=== PATIENT | male | born 1950 | race Caucasian/White ===

== ENCOUNTER → 2016-05-22 | Outpatient (CLI) | payer OTHER, MEDICARE ==
[~2016-05-22] MED LIST: GADOBUTROL 10 ML VIAL IVP ONE
[2016-05-22 10:03] LABS: CREATININE 0.8 mg/dL (0.7-1.3); GLOMERULAR FILTRATION RATE > 60
--- NOTE | 2016-05-22 16:30 | MR ---
MRI of the Thoracic Spine (Without Contrast) 0941 hours Reason for examination: Persistent back pain. Previous lumbar spine surgery. Failed back syndrome. Technique: Sagittal T1, FSE T2 2nd echo with fat suppression and STIR imaging. Axial T1 and FSE T2 2n d echo imaging with fat suppression. Findings: Thoracic alignment is anatomic. There is a small right paracentral disk bulge at T1-T2, mo derate left paracentral disk bulge/protrusion at T2-T3, Mild right paracentral disk bulge at T4-T5, m oderate posterior central disk protrusion at T5-T6 causing mild compression upon the thoracic spinal cord, small posterior central disk protrusion without consequences at T9-T10, and moderate left parac entral disk protrusion at T11-T12. Right anterior disk bulges with hypertrophic osteophytes are prese nt mid to lower thoracic spine with largest at T9-T10. The thoracic neural canal is normal in size. T he thoracic cord looks normal. The conus medullaris occurs at T12-L1. Thoracic foramen are widely pat ent. Impression: 1. Multiple disk bulges and protrusions with findings most prominent at T5-T6 where there is a senior software analyst ior central disk protrusion causing mild to moderate compression upon the thoracic spinal cord withou t associated edema.
--- NOTE | 2016-05-22 16:39 | MR ---
MRI of the Lumbar Spine (Without and With Contrast) 1027 hours Clinical Indications: Failed back syndrome. Previous disk replacement and lumbar fusion Technique: Sagittal and axial T1 and T2 MR sequences of the lumbar spine without contrast. Axial i maging from T12 through S1. Post contrast sagittal and axial T1-weighted images with the uneventful i ntravenous administration of 8 mL of Gadavist also performed. Findings: Lumbar vertebral bodies are of normal height without compression fractures. Conus medulla ris appears normal and ends at L1 inferior endplate. Extensive metal artifact is present from L3 thr ough S1 from previous disk replacement material and anterior lumbar fusion plate. T12-L1: No disk herniation or stenosis. L1-L2: No disk herniation or stenosis. L2-L3: Mild desiccation and loss of disk height. There is mild diffuse disk bulge causing mild compre ssion upon the anterior dural sac. This along with mild ligamentum flavum hypertrophy and facet hyper trophy contributes to mild spinal stenosis and bilateral neural foraminal stenosis. L3-L4: Metallic disk replacement is present obscuring disk level on MRI.. L4-L5: The patient has had previous disk replacement material and bony fusion across this level. No r esidual disk bulge or protrusion is appreciated. There is underlying artifact, however. L5-S1: Metal disk replacement is present obscuring disk level on MRI. With contrast administration there is no abnormal enhancing lesion identified or abnormal enhancement along the disk margin. Impression: 1. Mild degenerative disk disease at L2-L3 with underlying mild spinal and bilateral neuroforaminal s tenoses.. 2. Metal artifact related to previous disk replacement material and lumbar spine fusion plate obscuri ng L3 through S1. Please see findings at specific disk levels.
== END ==
LOC: FIMAGING 09:02
PROVIDERS: ATTEND Neurological Surgery
DX: M96.1 Postlaminectomy syndrome, not elsewhere classified (principal); Z98.1 Arthrodesis status; M51.24 Other intervertebral disc displacement, thoracic region; M54.9 Dorsalgia, unspecified; M51.36 Other intervertebral disc degeneration, lumbar region
CPT/HCPCS: 72146; 72158; A9585

== ENCOUNTER 2016-06-22 07:21 | Day surgery (SDC) | payer OTHER, MEDICARE ==
[~2016-06-22 07:21] MED LIST changes: +BACITRACIN 50,000 UNITS/10 ML SYR IRR ONE; +BUPIVACAINE/EPI 0.25% 30 ML SDV ONE; -GADOBUTROL 10 ML VIAL IVP ONE; +THROMBIN (RECOMBINANT) 5,000 UNIT VIAL TP ONE
[2016-06-22] MEDS ORDERED: ceFAZolin 2 GM/DEXTROSE 100 ML IV ONE (08:00)
[2016-06-22] MEDS ORDERED: LIDOCAINE 1% 5 ML SDV ONE (08:08)
[2016-06-22] MEDS ORDERED: LR 1,000 ML IV ONE (08:29)
[2016-06-22] MEDS ORDERED: PROPOFOL/EMULSION 500 MG/50 ML BOTTLE IV ONE (08:37)
[2016-06-22] MEDS ORDERED: fentaNYL 100 MCG/2 ML INJ ONE ×2 (08:38→10:39)
[2016-06-22 08:40] LABS: INR 1.01 (0.83-1.16); PROTIME(PATIENT) 13.2 SEC (12.0-15.0)
[2016-06-22] MEDS ORDERED: MIDAZOLAM 2 MG/2 ML VIAL ONE (08:41)
[2016-06-22] MEDS ORDERED: PROPOFOL 200 MG/20 ML VIAL ONE (08:42)
[2016-06-22] MEDS ORDERED: SURGIFLO MATRIX KIT WITH THROMBIN TP ONE (09:24)
[2016-06-22] MEDS ORDERED: ROCURONIUM 50 MG/5 ML VIAL ONE (10:19)
[2016-06-22] MEDS ORDERED: ONDANSETRON 4 MG/2 ML VIAL ONE (10:19)
--- NOTE | 2016-06-22 11:24 | GOP ---
[f rep st] OPERATIVE REPORT DATE OF OPERATION: SURGEON: Meghna Aguilar DO THERAPY ADMINISTRATIVE ASSISTANT: NANCY Arndt PREOPERATIVE DIAGNOSIS: 1. Chronic pain syndrome. 2. Failed back syndrome. POSTOPERATIVE DIAGNOSIS: 1. Chronic pain syndrome. 2. Failed back syndrome. PROCEDURE PERFORMED: 1. T10-11 laminectomy with placement of Medtronic SureScan 5-6-5 paddle lead at T8, T9 interspace, T 9 and T10 interspace for trial. 2. Impedances. FINDINGS: SPECIMENS: None. ESTIMATED BLOOD LOSS: 30 mL. INDICATIONS: This is a 66-year-old male who has failed back syndrome, chronic pain syndrome and has failed all conservative management, elected to move forward with placement of spinal cord stimulator, paddle lead for trial. He was identified, consent obtained. DESCRIPTION OF PROCEDURE: The patient was brought to the operating room, anesthetized under local wi th MAC, prepped and draped in the usual sterile fashion. We localized the T9, 10, 11 inner space for a laminectomy. He was anesthetized with 0.5% Marcaine with epinephrine. Incision was made with a 1 0 blade. Hemostasis was obtained with Bovie and bipolar cautery, dissecting down to the lamina of T1 0 and T11, placed a Shadow-Line retractor, placed a 4 [place], took an x-ray, verified we were in th e appropriate position. We removed the interspinous ligament and spinous process using the Leksell a nd then used a high-speed drill to create a laminotomy, opened the ligament with a ball-tipped probe and then used 2 and 3 Kerrisons to create a laminotomy. We easily slid the lead into the space. The patient was awoken, had intraoperative testing. All testing was good. He was anchored in with ____ anchors and 0 Nurolon at 2 positions. We copiously irrigated with over a liter of bacitracin- infused saline. Meticulous hemostasis was obtained with bipolar cautery. Floseal was placed as well . The fascia was closed with 2-0 Vicryl pop-offs. The subcutaneous pocket was created with Metzenunique um scissors. Hemostasis was obtained with bipolar cautery. We then placed the extensions over the b oot over the lead. The extension over the lead was locked into position, protecting the contact with , brought the boot over the lead extension complex, tied in position with 2-0 silk ties in 2 positions. Checked impedance and all impedances were good. We tunneled out to the right as he wo uld like a permanent left-sided generator placement and then coiled the wires in the pocket. We took a final x-ray. There was no migration. Copiously irrigated with over a liter of bacitracin-infused saline. We closed the subcutaneous layer with 2-0 Vicryl pop-offs and the skin was closed with 3-0 running nylon. A drain stitch was placed around the external wires. The wound was dressed with Xero form, gauze and Tegaderm. The patient tolerated the procedure well. There were no complications. FLUIDS: 700 mL Crystalloid. URINE OUTPUT: None. DRAINS: None. COMPLICATIONS: None. /[id number]/MODL
--- NOTE | 2016-06-22 13:57 | DX ---
Intraoperative Fluoroscopy History: Spinal cord implant. Stimulator placement Fluoroscopy time = 36.6 seconds Fluoroscopy dose = 14.69 mGy Findings : A single spot film demonstrates placement of the leads dorsally between the lower portion of T9 and the upper portion of T11 Impression: Implant in the lower thoracic spine.
== END 2016-06-22 12:10 | disposition home or self-care (01) ==
LOC: FSGY 07:21
PROVIDERS: ATTEND Neurological Surgery
PROC: 00HV0MZ Insertion of Neurostimulator Lead into Spinal Cord, Open Approach (ICD-10-PCS; principal; 2016-06-22 08:30)
DX: G89.4 Chronic pain syndrome (principal); M96.1 Postlaminectomy syndrome, not elsewhere classified; M54.9 Dorsalgia, unspecified; F32.9 Major depressive disorder, single episode, unspecified; M51.24 Other intervertebral disc displacement, thoracic region; M51.36 Other intervertebral disc degeneration, lumbar region; I10 Essential (primary) hypertension; Z79.01 Long term (current) use of anticoagulants; Z86.711 Personal history of pulmonary embolism; Z96.643 Presence of artificial hip joint, bilateral
CPT/HCPCS: C1778; C1883; J0690; J2250; J2405; J2704; J3010

== ENCOUNTER 2016-06-29 06:55 | Day surgery (SDC) | payer OTHER, MEDICARE ==
[2016-06-29] MEDS ORDERED: LIDOCAINE 1% 5 ML SDV ONE (07:24)
[2016-06-29] MEDS ORDERED: ceFAZolin 2 GM/DEXTROSE 100 ML IV ONE (07:30)
[2016-06-29] MEDS ORDERED: BUPIVACAINE/EPI 0.25% 30 ML SDV ONE (07:43)
[2016-06-29] MEDS ORDERED: SKIN ADHESIVE (DERMABOND) 1 EACH TP ONE ×3 (07:43→07:45)
[2016-06-29] MEDS ORDERED: BACITRACIN 50,000 UNITS/10 ML SYR IRR ONE (07:44)
[2016-06-29 08:01] LABS: INR 0.96 (0.83-1.16); PROTIME(PATIENT) 12.7 SEC (12.0-15.0)
[2016-06-29] MEDS ORDERED: LIDOCAINE 1% 5 ML SDV ID PRN (08:06)
[2016-06-29] MEDS ORDERED: LR 1,000 ML IV ONE (08:06)
[2016-06-29] MEDS ORDERED: MIDAZOLAM 2 MG/2 ML VIAL ONE (08:35)
[2016-06-29] MEDS ORDERED: fentaNYL 100 MCG/2 ML INJ ONE (08:47)
[2016-06-29] MEDS ORDERED: PROPOFOL 200 MG/20 ML VIAL ONE (08:48)
--- NOTE | 2016-06-29 09:58 | GOP ---
[f rep st] OPERATIVE REPORT DATE OF OPERATION: SURGEON: Meghna Aguilar DO SPINNERET CLEANER: Rivka Antunez, NANCY. PREOPERATIVE DIAGNOSIS: 1. Chronic pain syndrome. 2. Failed back syndrome. 3. Successful spinal cord stimulator trial. POSTOPERATIVE DIAGNOSIS: 1. Chronic pain syndrome. 2. Failed back syndrome. 3. Successful spinal cord stimulator trial. PROCEDURE PERFORMED: 1. Placement of spinal cord stimulator generator Medtronic restore sensor generator to left hip con nection to indwelling paddle lead. 2. Impedance. FINDINGS: SPECIMENS: None. ESTIMATED BLOOD LOSS: 10 mL. INDICATIONS: This is a 66-year-old male who had a thoracic laminectomy, placement of spinal cord st imulator paddle lead for trial approximately 1 week ago. He had almost 100% relief of his pain and improvement of his activities of daily living. He elected to move forward with generator. DESCRIPTION OF PROCEDURE: He was identified, consented. Sites were marked, brought to the operatin g room, anesthetized under general endotracheal tube anesthesia, rolled onto the Kiko frame. All pressure points were appropriately padded. Sutures were cut and he was prepped and draped in usual sterile fashion. The incision for the pocket was marked. He had previously marked the level of his belt line. It was placed just below that on the left side. Incision at the hip was anesthetized w ith 0.25% Marcaine with epinephrine. Incision was made with a 10 blade at the thoracic spine and th e lead wires were brought out and the extension was cut at the distal end, pulling out from undernea th the drapes. Then stay sutures were cut with a 15 blade. The boot was retracted. Using the torq ue wrench protecting the context, we removed the extension and discarded the extension and boot. Ma de an incision at the hip with a 10 blade and using Metzenbaum scissors, created a subcutaneous pock et for the generator. We then tunneled from the hip to the thoracic spine, brought the leads down a nd out through leaving a strain relief loop at the thoracic spine and gently drying the lead placing it into the generator, locking it in place with the torque wrench, coiling wires posterior to the g enerator placing it in the pocket, checking impedances. All impedances were good. Generator was keyes tured to the fascia with 2-0 silk stitch at 2 positions. We copiously irrigated each incision with over a L of bacitracin infused saline. The thoracic incision was closed with 2-0 Vicryl pop-offs keyes bcutaneous stitch in a 3-0 running nylon. At the hip, the fascia was closed with 2-0 Vicryl pop-off s subcutaneous layer through Vicryl pop-offs. The skin was closed with a 4-0 running Monocryl and D ermabond. The thoracic incision was dressed with and Xeroform gauze and a Tegaderm. The stay stitc h was placed at the extension for removal site. Patient tolerated procedure well. No complications . FLUID: 700 mL crystalloid. URINE OUTPUT: None. DRAINS: None. COMPLICATIONS: None. /[id number]/MODL
[2016-06-29] MEDS ORDERED: oxyCODONE IR 5 MG TAB ONE (10:36)
== END 2016-06-29 11:50 | disposition home or self-care (01) ==
LOC: FSGY 06:55
PROVIDERS: ATTEND Neurological Surgery
PROC: 0JH70MZ Insertion of Stimulator Generator into Back Subcutaneous Tissue and Fascia, Open Approach (ICD-10-PCS; principal; 2016-06-29 08:30)
DX: G89.4 Chronic pain syndrome (principal); M96.1 Postlaminectomy syndrome, not elsewhere classified; M54.9 Dorsalgia, unspecified; F32.9 Major depressive disorder, single episode, unspecified; M48.05 Spinal stenosis, thoracolumbar region; Z96.643 Presence of artificial hip joint, bilateral; D68.59 Other primary thrombophilia; E78.00 Pure hypercholesterolemia, unspecified; I20.1 Angina pectoris with documented spasm; Z86.718 Personal history of other venous thrombosis and embolism; Z79.01 Long term (current) use of anticoagulants; Z79.899 Other long term (current) drug therapy; Z98.1 Arthrodesis status
CPT/HCPCS: C1787; C1820; J0690; J2250; J2704; J3010

== ENCOUNTER → 2016-08-19 | Outpatient (CLI) | payer OTHER, MEDICARE | LOC: FIMAGING 13:51 | PROVIDERS: ATTEND Anesthesiology Pain Medicine | DX: Z09 Encounter for follow-up examination after completed treatment for conditions other than malignant neoplasm (principal); G89.4 Chronic pain syndrome; M96.1 Postlaminectomy syndrome, not elsewhere classified; M54.5 Low back pain; M51.37 Other intervertebral disc degeneration, lumbosacral region; Z96.89 Presence of other specified functional implants ==

== ENCOUNTER 2017-01-16 15:59 | Observation (INO) | payer OTHER, MEDICARE ==
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
[2017-01-16] MEDS ORDERED: NS 1,000 ML IV ONE (16:25)
[2017-01-16] MEDS ORDERED: IOPAMIDOL (ISOVUE-300) 100 ML BTL ONE (16:29)
[2017-01-16 16:30] LABS: % IMMATURE GRANULYOCYTES 0.9 % (0.0-1.1); ABSOLUTE IMMATURE GRANULOCYTES 0.09 10^3/uL (0.00-0.10); ADD DIFF? NO; ADD MORPH? NO; ADD SCAN? NO; ATYPICAL LYMPHOCYTE FLAG 0 (0-99); FRAGMENT RBC FLAG 0 (0-99); HEMOGLOBIN 16.2 g/dL (13.7-17.5); LEFT SHIFT FLG 10 (0-99); LIPEMIA HEMOLYSIS FLAG 90 (0-99); MEAN CELL HEMOGLOBIN 31.7 pg (27.9-34.1); MEAN CELL HEMOGLOBIN CONCENTR. 33.8 g/dL (32.4-36.7); MEAN CELL VOLUME 93.9 fL (81.5-99.8); MEAN PLATELET VOLUME 9.4 fL (8.7-11.7); PLATELET CLUMPS FLAG 10 (0-99); PLATELET COUNT 251 10^3/uL (150-400); RED BLOOD CELL COUNT 5.11 10^6/uL (4.40-6.38); RED CELL DISTRIBUTION WIDTH 13.7 % (11.5-15.2)
[2017-01-16] MEDS ORDERED: HYDROmorphONE/DILAUDID 1 MG/ML SYR IVP ONE ×3 (16:30→22:23)
[2017-01-16 16:36] LABS: ANION GAP 15 mEq/L (8-16); CALCIUM 10.3 mg/dL (8.5-10.4); CARBON DIOXIDE 24 mEq/l (22-31); CHLORIDE 104 mEq/L (97-110); CREATININE 0.8 mg/dL (0.7-1.3); GLOMERULAR FILTRATION RATE > 60; GLUCOSE 112 mg/dL (70-100); POTASSIUM 4.1 mEq/L (3.5-5.2); SODIUM 143 mEq/L (134-144)
[2017-01-16 16:49] LABS: INR 2.24 (0.83-1.16)
[2017-01-16] MEDS ORDERED: LORazepam 2 MG/ML INJ IVP ONE ×2 (16:54→18:26)
[2017-01-16] MEDS ORDERED: TDAP ADULT 0.5 ML INJ (BOOSTRIX) IM ONE (17:21)
[2017-01-16] MEDS ORDERED: ONDANSETRON 4 MG/2 ML VIAL IVP PRN (18:50)
[2017-01-16] MEDS ORDERED: LR 1,000 ML IV SCH (19:00)
[2017-01-16 20:14] LABS: COLOR YELLOW; LEUKOCYTE ESTERASE,URINE NEGATIVE (NEGATIVE); NITRITE,URINE NEGATIVE (NEGATIVE)
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
[2017-01-16] MEDS: GABAPENTIN 300 MG CAP PO SCH (22:04)
[2017-01-16] MEDS: traMADol 50 MG TAB PO SCH (22:04)
[2017-01-16] MEDS: ACETAMINOPHEN 500 MG TAB PO SCH (22:05)
[2017-01-16] MEDS: BACITRACIN ZINC 14.2 GM OINTTUBE TP SCH (22:06)
[2017-01-16] MEDS: METOPROLOL TARTRATE 25 MG TAB PO SCH (22:07)
[2017-01-16] MEDS ORDERED: traZODone 50 MG TAB PO ONE (22:19)
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
[2017-01-17 05:21] LABS: % IMMATURE GRANULYOCYTES 0.5 % (0.0-1.1); ABSOLUTE IMMATURE GRANULOCYTES 0.04 10^3/uL (0.00-0.10); ADD DIFF? NO; ADD MORPH? NO; ADD SCAN? NO; ATYPICAL LYMPHOCYTE FLAG 0 (0-99); FRAGMENT RBC FLAG 0 (0-99); HEMATOCRIT 36.6 % (40.0-51.0); HEMOGLOBIN 12.4 g/dL (13.7-17.5); LEFT SHIFT FLG 10 (0-99); LIPEMIA HEMOLYSIS FLAG 90 (0-99); MEAN CELL HEMOGLOBIN 31.9 pg (27.9-34.1); MEAN CELL HEMOGLOBIN CONCENTR. 33.9 g/dL (32.4-36.7); MEAN CELL VOLUME 94.1 fL (81.5-99.8); MEAN PLATELET VOLUME 9.3 fL (8.7-11.7); PLATELET CLUMPS FLAG 0 (0-99); PLATELET COUNT 194 10^3/uL (150-400); RED BLOOD CELL COUNT 3.89 10^6/uL (4.40-6.38)
[2017-01-17 05:35] LABS: INR 2.2 (0.83-1.16); PROTIME(PATIENT) 24.6 SEC (12.0-15.0)
[2017-01-17 05:45] LABS: ANION GAP 9 mEq/L (8-16); CALCIUM 8.8 mg/dL (8.5-10.4); CARBON DIOXIDE 24 mEq/l (22-31); CHLORIDE 103 mEq/L (97-110); CREATININE 0.7 mg/dL (0.7-1.3); GLOMERULAR FILTRATION RATE > 60; GLUCOSE 146 mg/dL (70-100); POTASSIUM 4.4 mEq/L (3.5-5.2); SODIUM 136 mEq/L (134-144)
[2017-01-17] MEDS: ACETAMINOPHEN 500 MG TAB PO SCH ×2 (05:47→14:00)
[2017-01-17] MEDS: METOPROLOL TARTRATE 25 MG TAB PO SCH (08:53)
[2017-01-17] MEDS: GABAPENTIN 300 MG CAP PO SCH ×2 (08:53→15:32)
[2017-01-17] MEDS: traMADol 50 MG TAB PO SCH ×2 (08:54→15:32)
[2017-01-17] MEDS ORDERED: DIVALPROEX ER 250 MG TAB PO SCH (09:00)
[2017-01-17] MEDS ORDERED: CITALOPRAM 20 MG TAB PO SCH (09:00)
[2017-01-17 11:44] VITALS: RESP 14
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
[2017-01-17] MEDS: BACITRACIN ZINC 14.2 GM OINTTUBE TP SCH (14:00)
[2017-01-17] MEDS ORDERED: HYDROCODONE/APAP 5/325 TAB PO PRN (14:33)
[2017-01-17 15:46] VITALS: BP 134/72; PULSE 70; TEMP 97.9; O2SAT 93
[2017-01-17] MEDS ORDERED: WARFARIN SODIUM 5 MG TAB PO SCH (16:00)
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
[2017-01-17] MEDS ORDERED: traZODone 50 MG TAB PO SCH (21:00)
--- NOTE | 2017-01-18 09:21 | ASDISCHSUM ---
Discharge Information Plan Status:Home with No Needs Medically Cleared to Leave: Discharge Date: CM D/C Disposition:Home, Routine, Self-Care ADT D/C Disposition: Projected Discharge Date: Transportation at D/C: Discharge Delay Reason: Follow-Up Date: Discharge Slot: Final Diagnosis: Placement Information Patient Contact Information Contact Name:REGINALDO Relationship: Address:[address] Work Phone: City:[place] Phone: State/Zip Code:[place] [address] Email: Financial Information Financial Class: Primary Plan Desc:MEDICARE OUTPATIENT Primary Plan Number:[id number] Secondary Plan Desc:[employer]/MDR SUPPLEMENT Secondary Plan Number:[id number] Assessment Information Intervention Information Intervention Type:*NOVAK-Signed Date of Service:01/17/2017 01:06 PM Patient Type:Observation Staff Member:Sindhu Bnod Hours: Discipline: Severity: Comment:
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
== END 2017-01-17 18:20 | disposition home or self-care (01) ==
LOC: F3N 20:07
PROVIDERS: ADMIT Surgery; ATTEND Surgery
DX: S12.691A Other nondisplaced fracture of seventh cervical vertebra, initial encounter for closed fracture (principal); S40.212A Abrasion of left shoulder, initial encounter; S60.812A Abrasion of left wrist, initial encounter; V29.9XXA Motorcycle rider (driver) (passenger) injured in unspecified traffic accident, initial encounter; M50.322 Other cervical disc degeneration at C5-C6 level; M46.92 Unspecified inflammatory spondylopathy, cervical region; E78.5 Hyperlipidemia, unspecified; G89.29 Other chronic pain; I26.99 Other pulmonary embolism without acute cor pulmonale; Z79.01 Long term (current) use of anticoagulants
CPT/HCPCS: 70450; 71260; 72040; 72125; 72129; 72132; 72141; 73562; 74177; 90715; 92523; 97161; 97165; G0378; G8978; G8979; G8980; G8987; G8988; G8989; G9165; G9166; G9167; J1170; J2060; Q9967; 82947-QW; 96374

== ENCOUNTER → 2017-01-31 | Outpatient (CLI) | payer OTHER, MEDICARE | LOC: FIMAGING 12:13 | PROVIDERS: ATTEND Internal Medicine | DX: S22.31XD Fracture of one rib, right side, subsequent encounter for fracture with routine healing (principal) ==

== ENCOUNTER → 2017-02-13 | Outpatient (CLI) | payer OTHER, MEDICARE | LOC: BMCIMAGING 10:33 | PROVIDERS: ATTEND Neurological Surgery | DX: M50.322 Other cervical disc degeneration at C5-C6 level (principal); M50.323 Other cervical disc degeneration at C6-C7 level ==

== ENCOUNTER → 2017-03-09 | Outpatient (CLI) | payer OTHER, MEDICARE | LOC: FIMAGING 16:00 | PROVIDERS: ATTEND Nurse Practitioner | DX: M54.16 Radiculopathy, lumbar region (principal); Z98.1 Arthrodesis status ==

== ENCOUNTER → 2017-03-16 | Outpatient (CLI) | payer OTHER, MEDICARE | LOC: BMCIMAGING 10:32 | PROVIDERS: ATTEND Nurse Practitioner | DX: M50.30 Other cervical disc degeneration, unspecified cervical region (principal); M43.12 Spondylolisthesis, cervical region ==

== ENCOUNTER → 2017-05-03 | Outpatient (CLI) | payer OTHER, MEDICARE ==
[~2017-05-03] MED LIST changes: -BACITRACIN 50,000 UNITS/10 ML SYR IRR ONE; -BUPIVACAINE/EPI 0.25% 30 ML SDV ONE; +IOPAMIDOL (ISOVUE-M 200) 20 ML VIAL ONE; +LIDOCAINE 1% 300 MG/30 ML SDV ONE; -THROMBIN (RECOMBINANT) 5,000 UNIT VIAL TP ONE
--- NOTE | 2017-05-03 12:33 | PDRADPN ---
Radiology Procedure Note Date of Procedure: 05/09/17 Radiologist: Rom Benoit Pre-op Diagnosis: LOW BACK PAIN Post-op Diagnosis: LOW BACK PAIN Indication: LOW BACK PAIN Procedure: LUMBAR MYELOGRAM Finding(s): MILD STENOSIS. PLEASE SEE RADIOLOGY REPORT. Depth: Superfical (Skin SQ) (LOCAL LIDOCAIN IN BACK) EBL: Minimal (NONE) Drains: Constavac Specimen(s): NONE
== END ==
LOC: FIMAGING 04-12 09:39
PROVIDERS: ATTEND Nurse Practitioner
PROC: 3E0R3KZ Introduction of Other Diagnostic Substance into Spinal Canal, Percutaneous Approach (ICD-10-PCS; principal; 2017-05-03)
DX: M54.5 Low back pain (principal); Z98.1 Arthrodesis status; S12.600A Unspecified displaced fracture of seventh cervical vertebra, initial encounter for closed fracture
CPT/HCPCS: 62284; 72132; 72265; Q9966

== ENCOUNTER → 2017-09-29 | Outpatient (CLI) | payer OTHER, MEDICARE | LOC: FIMAGING 08:27 | PROVIDERS: ATTEND Internal Medicine | DX: R27.0 Ataxia, unspecified (principal) ==

== ENCOUNTER → 2017-11-10 | Outpatient (CLI) | payer OTHER, MEDICARE | LOC: BMCIMAGING 09:35 | PROVIDERS: ATTEND Family Medicine | DX: S49.92XA Unspecified injury of left shoulder and upper arm, initial encounter (principal); Y93.55 Activity, bike riding; V18.9XXA Unspecified pedal cyclist injured in noncollision transport accident in traffic accident, initial encounter ==

== ENCOUNTER → 2017-12-07 | Outpatient (CLI) | payer OTHER, MEDICARE | LOC: BMCIMAGING 13:42 | PROVIDERS: ATTEND Internal Medicine | DX: E04.1 Nontoxic single thyroid nodule (principal) | CPT/HCPCS: 76536-PO ==

== ENCOUNTER 2017-12-14 06:13 | Inpatient (IN) | payer OTHER, MEDICARE ==
[2017-12-14] MEDS ORDERED: NS 1,000 ML IV ONE (06:30)
[2017-12-14] MEDS ORDERED: ONDANSETRON 4 MG/2 ML VIAL ONE ×2 (06:30→08:30)
[2017-12-14] MEDS ORDERED: PROMETHAZINE HCL 25 MG/ML INJ IVP ONE (06:31)
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
[2017-12-14 06:36] LABS: PLATELET COUNT 211 10^3/uL (150-400)
[2017-12-14] MEDS ORDERED: fentaNYL 100 MCG/2 ML INJ ONE (06:36)
[2017-12-14] MEDS ORDERED: fentaNYL 100 MCG/2 ML INJ IVP ONE (06:37)
[2017-12-14 06:44] LABS: INR 3.72 (0.83-1.16); PROTIME(PATIENT) 36.5 SEC (12.0-15.0)
[2017-12-14] MEDS ORDERED: HUMAN PROTHROMBIN COMPLX(PCC) 2,500 UNIT/100 ML VIAL IV ONE (06:47)
[2017-12-14] MEDS ORDERED: PHYTONADIONE 10 MG in NS 50 ML IV ONE (06:47)
[2017-12-14] MEDS ORDERED: levETIRAcetam 750 MG in NS 100 ML IV ONE (07:49)
[2017-12-14] MEDS ORDERED: hydrALAZINE 20 MG/ML VIAL IVP PRN (07:53)
[2017-12-14] MEDS ORDERED: NS 1,000 ML IV SCH (08:00)
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
[2017-12-14 08:35] LABS: INR 1.09 (0.83-1.16); PROTIME(PATIENT) 14.3 SEC (12.0-15.0)
[2017-12-14] MEDS: ONDANSETRON 4 MG/2 ML VIAL IVP PRN ×2 (08:40→14:31)
[2017-12-14] MEDS ORDERED: ACETAMINOPHEN 650 MG SUPP PR PRN (08:48)
[2017-12-14] MEDS ORDERED: oxyCODONE IR 5 MG TAB PO PRN (08:48)
[2017-12-14] MEDS: HYDROmorphONE/DILAUDID 1 MG/ML INJ IVP PRN ×3 (09:06→17:31)
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
[2017-12-14] MEDS ORDERED: CYCLOBENZAPRINE 10 MG TAB PO PRN (14:20)
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
[2017-12-14] MEDS: levETIRAcetam 750 MG in NS 100 ML IV SCH ×2 (18:55→22:09)
[2017-12-14] MEDS ORDERED: GABAPENTIN 300 MG CAP PO SCH (21:00)
[2017-12-14] MEDS: GABAPENTIN 100 MG CAP PO SCH (22:07)
[2017-12-14] MEDS: MULTIVITAMINS W-MINERALS 1 EACH TAB PO SCH (22:07)
[2017-12-14] MEDS: METOPROLOL TARTRATE 25 MG TAB PO SCH (22:07)
[2017-12-14] MEDS: DIVALPROEX ER 250 MG TAB PO SCH (22:08)
[2017-12-14] MEDS: DULoxetine 30 MG CAP PO SCH (22:08)
[2017-12-14] MEDS: traZODone 100 MG TAB PO SCH (22:08)
[2017-12-15] MEDS: levETIRAcetam 500 MG TAB PO SCH ×2 (08:46→21:08)
[2017-12-15] MEDS: METHADONE HCL 10 MG TAB PO SCH ×2 (08:46→13:51)
[2017-12-15] MEDS: METOPROLOL TARTRATE 25 MG TAB PO SCH ×2 (08:47→20:12)
[2017-12-15] MEDS: PRAVASTATIN SODIUM 20 MG TAB PO SCH (08:47)
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
[2017-12-15] MEDS: ACETAMINOPHEN 500 MG TAB PO PRN ×2 (12:44→20:11)
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
[2017-12-15] MEDS: traZODone 100 MG TAB PO SCH (21:08)
[2017-12-15] MEDS: GABAPENTIN 100 MG CAP PO SCH (21:08)
[2017-12-15] MEDS: MULTIVITAMINS W-MINERALS 1 EACH TAB PO SCH (21:08)
[2017-12-15] MEDS: DULoxetine 30 MG CAP PO SCH (21:08)
[2017-12-15] MEDS: DIVALPROEX ER 250 MG TAB PO SCH (21:09)
[2017-12-16] MEDS: ACETAMINOPHEN 500 MG TAB PO PRN (04:59)
[2017-12-16] MEDS: levETIRAcetam 500 MG TAB PO SCH (08:45)
[2017-12-16] MEDS: METHADONE HCL 10 MG TAB PO SCH ×2 (08:47→13:35)
[2017-12-16] MEDS: METOPROLOL TARTRATE 25 MG TAB PO SCH (08:48)
[2017-12-16] MEDS: PRAVASTATIN SODIUM 20 MG TAB PO SCH (08:49)
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
[2017-12-16 11:50] VITALS: BP 136/82
--- NOTE | 2017-12-16 14:13 | ASMTDCNOTE ---
Case Management Discharge Discharge Order Complete? Answers: Yes Followup Appointment 12/29/2017 12:00 AM Patient to Obtain Answers: Independently Medications Transportation Arranged Answers: Family/Friends Discharge Comments Notes: Patient discharged home with . 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 He will follow up with Dr Singh in two week.s Date Signed: 12/16/2017 02:12 PM Electronically Signed By:Syeda Kauffman RN
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
== END 2017-12-16 15:53 | disposition home or self-care (01) | DRG 87 ==
LOC: F2N 08:20 → F3N 12-16 10:17
PROVIDERS: ADMIT Neurological Surgery; ATTEND Neurological Surgery
PROC: 30283B1 Transfusion of Nonautologous 4-Factor Prothrombin Complex Concentrate into Vein, Percutaneous Approach (ICD-10-PCS; principal; 2017-12-14)
DX: S06.5X0A Traumatic subdural hemorrhage without loss of consciousness, initial encounter (principal); V18.0XXA Pedal cycle driver injured in noncollision transport accident in nontraffic accident, initial encounter; R40.2411 Glasgow coma scale score 13-15, in the field [EMT or ambulance]; E86.9 Volume depletion, unspecified; Z79.01 Long term (current) use of anticoagulants; Z86.711 Personal history of pulmonary embolism
CPT/HCPCS: 82435-PO; 82565-PO; 82947-PO; 84132-PO; 84295-PO; 84484-PO; 84520-PO; 85014-PO; 92507-GN; 92523-GN; 96374; 97116-GP; 97162-GP; 97166-GO; 97530-GO; 97535-GO; C9132; G8978-GP-CJ; G8979-GP-CI; G8980-GP-CI; G8987-GO-CI; G8988-GO-CH; G8988-GO-CI; G8989-GO-CI; G9165-GN-CI; G9166-GN-CH; J0360; J1170; J1953; J2405; J2550; J3010; J3430

== ENCOUNTER → 2018-02-02 | Outpatient (CLI) | payer OTHER, MEDICARE | LOC: BMCIMAGING 15:03 | PROVIDERS: ATTEND Orthopaedic Surgery Hand Surgery | DX: M19.012 Primary osteoarthritis, left shoulder (principal) ==

== ENCOUNTER → 2018-02-08 | Outpatient (CLI) | payer OTHER, MEDICARE | LOC: FIMAGING 09:08 | PROVIDERS: ATTEND Physician Assistant Surgical | DX: Z09 Encounter for follow-up examination after completed treatment for conditions other than malignant neoplasm (principal); S06.5X1D Traumatic subdural hemorrhage with loss of consciousness of 30 minutes or less, subsequent encounter ==

== ENCOUNTER → 2018-10-12 | Outpatient (CLI) | payer OTHER, MEDICARE | LOC: BMCIMAGING 13:57 ==